=== PATIENT | female | born 1945 | race Caucasian/White ===

== ENCOUNTER 2024-02-16 14:48 | Inpatient (IN) ==
[2024-02-16] MEDS: Magnesium Sulfate 2 gm BAG 2 GM/50 ML BAG IVPB ONE (15:27)
[2024-02-16] MEDS: NS 0.9% 1000 ml BAG 1,000 ML IV ONE (15:28)
[2024-02-16] MEDS: Esmolol 10 MG/ML IVPREMIX 2,500 MG/250 ML BAG IV SCH (16:20)
[2024-02-17 06:34] LABS: ABS Eosinophils 0.3 10^3/uL (0.0-0.5); ABS Lymphocytes 0.7 10^3/uL (1.0-4.8); ABS Monocytes 0.5 10^3/uL (0.0-0.9); ABS Neutrophils 5.5 10^3/uL (1.5-7.6); Eosinophil % 4.2 %; Hematocrit 36.9 % (35-45); Hemoglobin 12.5 g/dL (11.5-14.3); Mean Corpuscular Hemoglobin 33.8 pg (27-33); Mean Corpuscular Hgb Conc 33.9 g/dL (31-36); Mean Corpuscular Volume 99.7 fL (80-97); Mean Platelet Volume 8.4 fL (7.5-11.2); Platelet Count 261 10^3/uL (150-450); Red Cell Distribution Width 14.1 % (12-17)
[2024-02-17 06:41] LABS: Creatinine, Serum 0.72 mg/dL (0.51-0.95); HDL Cholesterol 59.6 mg/dL; Potassium 4.2 mmol/L (3.5-5.0); eGFR CKD-EPI 84.5 (>60)
[2024-02-17 07:53] LABS: TSH Ultra Thyroid Stim Horm 1.24 mcIU/mL (0.34-5.60)
[2024-02-17 07:59] LABS: Ferritin 41.3 ng/mL (11-307)
[2024-02-17 08:02] LABS: Folate 15.07 ng/mL (5.90-24.80)
[2024-02-17] MEDS ORDERED: Influenza vaccine *QUAD* *2023-24* 0.5 ML SYRINGE IM ONE (09:00)
[2024-02-17] MEDS ORDERED: COVID VAC 23-24(12+)(Moderna) SYR 0.5 ML IM ONE (09:00)
[2024-02-17] MEDS ORDERED: Pneumococcal 20-Valent Conj 0.5 ML SYR Vaccine IM ONE (09:00)
[2024-02-17 09:23] LABS: Erythrocyte Sed Rate 14 mm/Hr (0-29)
[2024-02-17] MEDS: Cyanocobalamin INJ 1,000 MCG/ML VIAL 1 ML VIAL IM SCH (12:16)
[2024-02-17] MEDS: Furosemide 40 mg/4 ml IV VIAL IV ONE (12:17)
[2024-02-17] MEDS ORDERED: LORazepam 2 mg VIAL 1 ml IV PUSH SCH (14:00)
[2024-02-17] MEDS: Ferric Gluconate IV 125 MG in NS 0.9% 100 ml BAG 100 ML IVPB SCH (14:12)
[2024-02-17] MEDS: Thiamine 100 MG/ML 2 ml VIAL (200 mg) IM ONE (14:30)
[2024-02-17] MEDS: Nitroglycerin 0.1 mg/hr PATCH (2.5 mg) TRANSDERM SCH (14:36)
[2024-02-18] MEDS: Metoprolol Tartrate 5 mg VIAL 5 ml VIAL (1 mg/ml) IV PRN (01:55)
[2024-02-18] MEDS: Metoprolol Tartrate 5 mg VIAL 5 ml VIAL (1 mg/ml) IV ONE (03:06)
[2024-02-18] MEDS: Esmolol 10 MG/ML IVPREMIX 2,500 MG/250 ML BAG IV SCH (03:17)
[2024-02-18] MEDS: [UNRECOGNIZED DRUG - REMARK] PO SCH (03:25)
[2024-02-18 04:01] LABS: Hematocrit 40.3 % (35-45); Hemoglobin 14.1 g/dL (11.5-14.3); Mean Corpuscular Hemoglobin 34.4 pg (27-33); Mean Corpuscular Hgb Conc 34.9 g/dL (31-36); Mean Corpuscular Volume 98.4 fL (80-97); Mean Platelet Volume 8.2 fL (7.5-11.2); Platelet Count 320 10^3/uL (150-450); Red Blood Count 4.09 10^6/uL (3.63-4.92); Red Cell Distribution Width 14.1 % (12-17); White Blood Count 8.7 10^3/uL (3.8-11.8)
[2024-02-18 04:50] LABS: Calcium 8.9 mg/dL (8.6-10.3); Creatinine, Serum 0.85 mg/dL (0.51-0.95); Magnesium 1.9 mg/dL (1.9-2.7); Potassium 3.9 mmol/L (3.5-5.0); eGFR CKD-EPI 69.2 (>60)
[2024-02-18] MEDS: Lactated Ringers 1000 ml BAG 1,000 ML IV ONE (05:11)
[2024-02-18] MEDS: Norepinephrine 4 MG/250mL D5W 4,000 MCG/250 ML BAG IV SCH (05:18)
[2024-02-18] MEDS: Norepinephrine 4 MG/250mL D5W 4,000 MCG/250 ML BAG IV ONE (05:31)
[2024-02-18] MEDS: Digoxin IV 0.5 MG/2 ML AMP (0.25 MG/ML) IV SLOW PU ONE ×3 (06:04→16:58)
[2024-02-18] MEDS: Magnesium Sulfate 2 gm BAG 2 GM/50 ML BAG IVPB ONE (06:18)
[2024-02-18] MEDS ORDERED: Nitroglycerin 0.1 mg/hr PATCH (2.5 mg) TRANSDERM SCH (09:00)
[2024-02-18] MEDS ORDERED: COVID VAC 23-24(12+)(Moderna) SYR 0.5 ML IM ONE (09:00)
[2024-02-18] MEDS ORDERED: Pneumococcal 20-Valent Conj 0.5 ML SYR Vaccine IM ONE (09:00)
[2024-02-18] MEDS: Magnesium Sulfate IV 1GM/100ML 1 GM/100 ML BAG IV ONE (09:52)
[2024-02-18] MEDS ORDERED: Senna TAB 8.6 mg TAB PO PRN (19:36)
[2024-02-19 04:14] LABS: ABS Eosinophils 0.7 10^3/uL (0.0-0.5); ABS Lymphocytes 1.1 10^3/uL (1.0-4.8); ABS Monocytes 0.6 10^3/uL (0.0-0.9); ABS Neutrophils 4.4 10^3/uL (1.5-7.6); ABS Nucleated RBC 0.01 10^3/ul; Eosinophil % 9.9 %; Hemoglobin 12.7 g/dL (11.5-14.3); Lymphocyte % 15.8 %; Mean Corpuscular Hgb Conc 34.4 g/dL (31-36); Mean Corpuscular Volume 98.7 fL (80-97); Nucleated Red Blood Cells % 0.2 %/100WBC (0.0-0.8); Platelet Count 286 10^3/uL (150-450); Red Blood Count 3.75 10^6/uL (3.63-4.92); Red Cell Distribution Width 14.2 % (12-17); White Blood Count 6.8 10^3/uL (3.8-11.8)
[2024-02-19 04:54] LABS: Calcium 8.5 mg/dL (8.6-10.3); Creatinine, Serum 0.86 mg/dL (0.51-0.95); Magnesium 2.1 mg/dL (1.9-2.7); Potassium 4.1 mmol/L (3.5-5.0); eGFR CKD-EPI 68.3 (>60)
[2024-02-19] MEDS: Furosemide 20 mg/2 ml IV VIAL IV ONE (11:22)
[2024-02-20 03:48] LABS: Creatinine, Serum 0.89 mg/dL (0.51-0.95); Magnesium 1.9 mg/dL (1.9-2.7); Potassium 3.9 mmol/L (3.5-5.0); eGFR CKD-EPI 65.5 (>60)
[2024-02-20 04:02] LABS: ABS Eosinophils 0.6 10^3/uL (0.0-0.5); ABS Lymphocytes 1.2 10^3/uL (1.0-4.8); ABS Monocytes 0.6 10^3/uL (0.0-0.9); ABS Neutrophils 3.3 10^3/uL (1.5-7.6); ABS Nucleated RBC 0.02 10^3/ul; Eosinophil % 10.1 %; Hematocrit 35.4 % (35-45); Hemoglobin 12.2 g/dL (11.5-14.3); Lymphocyte % 20.7 %; Mean Corpuscular Hemoglobin 34.4 pg (27-33); Mean Corpuscular Hgb Conc 34.6 g/dL (31-36); Mean Corpuscular Volume 99.3 fL (80-97); Nucleated Red Blood Cells % 0.3 %/100WBC (0.0-0.8); Platelet Count 274 10^3/uL (150-450); Red Blood Count 3.56 10^6/uL (3.63-4.92); Red Cell Distribution Width 13.9 % (12-17); White Blood Count 5.7 10^3/uL (3.8-11.8)
[2024-02-20] MEDS: Senna TAB 8.6 mg TAB PO SCH (08:13)
[2024-02-21 04:55] LABS: ABS Eosinophils 0.5 10^3/uL (0.0-0.5); ABS Lymphocytes 1.1 10^3/uL (1.0-4.8); ABS Monocytes 0.7 10^3/uL (0.0-0.9); ABS Neutrophils 4.8 10^3/uL (1.5-7.6); ABS Nucleated RBC 0.01 10^3/ul; Eosinophil % 7.2 %; Hematocrit 36.5 % (35-45); Hemoglobin 12.6 g/dL (11.5-14.3); Lymphocyte % 15.3 %; Mean Corpuscular Hgb Conc 34.5 g/dL (31-36); Mean Corpuscular Volume 98.7 fL (80-97); Mean Platelet Volume 7.5 fL (7.5-11.2); Nucleated Red Blood Cells % 0.2 %/100WBC (0.0-0.8); Platelet Count 303 10^3/uL (150-450); Red Cell Distribution Width 13.9 % (12-17); White Blood Count 7.1 10^3/uL (3.8-11.8)
[2024-02-21 05:51] LABS: Calcium 9.2 mg/dL (8.6-10.3); Creatinine, Serum 0.84 mg/dL (0.51-0.95); Magnesium 1.8 mg/dL (1.9-2.7); eGFR CKD-EPI 70.2 (>60)
[2024-02-21] MEDS ORDERED: Regadenoson 0.4 MG/5 ML SYRINGE ONE (07:52)
[2024-02-21] MEDS: Venlafaxine 25 mg TAB (NF) PO SCH (10:28)
[2024-02-21] MEDS: Magnesium Sulfate 2 gm BAG 2 GM/50 ML BAG IVPB ONE (12:01)
[2024-02-21] MEDS: Furosemide 20 mg/2 ml IV VIAL IV SLOW PU ONE (16:33)
[2024-02-22 07:04] LABS: Calcium 9.5 mg/dL (8.6-10.3); Creatinine, Serum 0.82 mg/dL (0.51-0.95); Magnesium 1.9 mg/dL (1.9-2.7); eGFR CKD-EPI 72.3 (>60)
[2024-02-23 06:42] LABS: ABS Basophils 0.1 10^3/uL (0.0-0.1); ABS Eosinophils 0.1 10^3/uL (0.0-0.5); ABS Lymphocytes 1.2 10^3/uL (1.0-4.8); ABS Neutrophils 6.6 10^3/uL (1.5-7.6); ABS Nucleated RBC 0.01 10^3/ul; Eosinophil % 1.1 %; Hemoglobin 14.6 g/dL (11.5-14.3); Lymphocyte % 13.1 %; Mean Corpuscular Hemoglobin 34.4 pg (27-33); Mean Corpuscular Hgb Conc 34.7 g/dL (31-36); Mean Corpuscular Volume 98.9 fL (80-97); Mean Platelet Volume 7.9 fL (7.5-11.2); Nucleated Red Blood Cells % 0.1 %/100WBC (0.0-0.8); Platelet Count 294 10^3/uL (150-450); Red Blood Count 4.24 10^6/uL (3.63-4.92); Red Cell Distribution Width 14.3 % (12-17)
[2024-02-23 07:03] LABS: Calcium 9.2 mg/dL (8.6-10.3); Creatinine, Serum 0.78 mg/dL (0.51-0.95); Potassium 4.1 mmol/L (3.5-5.0); eGFR CKD-EPI 76.7 (>60)
[2024-02-23] MEDS: NS 0.9% 500 ml BAG 500 ML IV ONE (11:25)
[2024-02-23] MEDS: Metoprolol Tartrate 5 mg VIAL 5 ml VIAL (1 mg/ml) ONE (11:28)
[2024-02-23] MEDS: Digoxin IV 0.5 MG/2 ML AMP (0.25 MG/ML) IV SLOW PU ONE ×2 (11:55→12:32)
[2024-02-23] MEDS: Metoprolol Tartrate 5 mg VIAL 5 ml VIAL (1 mg/ml) IV ONE (12:19)
[2024-02-23] MEDS ORDERED: Ondansetron 4 mg VIAL 2 MG/ML 2 ml VIAL IV PRN (20:59)
[2024-02-23] MEDS: Ondansetron 4 mg VIAL 2 MG/ML 2 ml VIAL IV ONE (21:12)
[2024-02-24 07:00] LABS: ABS Eosinophils 0.1 10^3/uL (0.0-0.5); ABS Lymphocytes 1.1 10^3/uL (1.0-4.8); ABS Monocytes 1.4 10^3/uL (0.0-0.9); ABS Neutrophils 8.3 10^3/uL (1.5-7.6); Eosinophil % 0.8 %; Hematocrit 41.6 % (35-45); Hemoglobin 14.4 g/dL (11.5-14.3); Lymphocyte % 9.7 %; Mean Corpuscular Hemoglobin 34.2 pg (27-33); Mean Corpuscular Hgb Conc 34.5 g/dL (31-36); Mean Corpuscular Volume 99.1 fL (80-97); Mean Platelet Volume 7.7 fL (7.5-11.2); Platelet Count 328 10^3/uL (150-450); Red Cell Distribution Width 14.4 % (12-17); White Blood Count 10.8 10^3/uL (3.8-11.8)
[2024-02-24 07:20] LABS: Calcium 9.2 mg/dL (8.6-10.3); Creatinine, Serum 1.08 mg/dL (0.51-0.95); Magnesium 2.3 mg/dL (1.9-2.7); Potassium 4.6 mmol/L (3.5-5.0); eGFR CKD-EPI 51.9 (>60)
[2024-02-25 07:31] LABS: Calcium 9.4 mg/dL (8.6-10.3); Creatinine, Serum 0.85 mg/dL (0.51-0.95); Magnesium 2.1 mg/dL (1.9-2.7); Potassium 4.7 mmol/L (3.5-5.0); eGFR CKD-EPI 69.2 (>60)
[2024-02-28 09:49] VITALS: BP 122/64
[2024-02-28 10:33] LABS: Rapid COVID-19 Molecular Undetected (Undetected)
== END 2024-02-28 13:30 | disposition swing bed (61) | DRG 308 ==
LOC: ED 14:48 → SUATTDRO 16:26 → EDHOLD 16:26 → ICU 19:55 → MEDTELE 02-17 16:48 → ICU 02-18 03:03 → MEDTELE 02-21 06:20
PROVIDERS: ADMIT Surgery Surgical Critical Care; ATTEND Internal Medicine

== ENCOUNTER 2024-03-03 13:23 | Inpatient (IN) ==
[2024-03-03 16:39] LABS: ABS Basophils 0.1 10^3/uL (0.0-0.1); ABS Eosinophils 0.2 10^3/uL (0.0-0.5); ABS Lymphocytes 1.2 10^3/uL (1.0-4.8); ABS Monocytes 0.7 10^3/uL (0.0-0.9); ABS Neutrophils 4.6 10^3/uL (1.5-7.6); ABS Nucleated RBC 0.01 10^3/ul; Eosinophil % 3.4 %; Hematocrit 49.5 % (35-45); Lymphocyte % 18.1 %; Mean Corpuscular Hemoglobin 33.6 pg (27-33); Mean Corpuscular Hgb Conc 34.3 g/dL (31-36); Mean Platelet Volume 8.5 fL (7.5-11.2); Nucleated Red Blood Cells % 0.1 %/100WBC (0.0-0.8); Platelet Count 395 10^3/uL (150-450); Red Blood Count 5.05 10^6/uL (3.63-4.92); Red Cell Distribution Width 13.5 % (12-17); White Blood Count 6.9 10^3/uL (3.8-11.8)
[2024-03-03 17:09] LABS: Albumin 4.3 g/dL (3.2-5.2); Albumin/Globulin Ratio 1.6 (1-3); Calcium 10.1 mg/dL (8.6-10.3); Creatinine, Serum 0.96 mg/dL (0.51-0.95); Globulin 2.7 g/dL (2-4); Magnesium 2.2 mg/dL (1.9-2.7); Potassium 4.7 mmol/L (3.5-5.0); Total Bilirubin 0.4 mg/dL (0.2-1.0); eGFR CKD-EPI 59.8 (>60)
[2024-03-03] MEDS: Cyanocobalamin INJ 1,000 MCG/ML VIAL 1 ML VIAL IM SCH (17:33)
[2024-03-04 06:27] LABS: Hematocrit 44.2 % (35-45); Hemoglobin 15.2 g/dL (11.5-14.3); Mean Corpuscular Hemoglobin 33.4 pg (27-33); Mean Corpuscular Hgb Conc 34.4 g/dL (31-36); Mean Corpuscular Volume 97.3 fL (80-97); Mean Platelet Volume 8.5 fL (7.5-11.2); Platelet Count 355 10^3/uL (150-450); Red Blood Count 4.55 10^6/uL (3.63-4.92); Red Cell Distribution Width 13.6 % (12-17); White Blood Count 6.2 10^3/uL (3.8-11.8)
[2024-03-04 06:43] LABS: Calcium 9.4 mg/dL (8.6-10.3); Creatinine, Serum 1.05 mg/dL (0.51-0.95); Potassium 5.1 mmol/L (3.5-5.0); eGFR CKD-EPI 53.7 (>60)
[2024-03-04] MEDS: CMCS:Venlafaxine 25 mg TAB (NF) PO SCH (09:02)
[2024-03-04] MEDS: Senna TAB 8.6 mg TAB PO SCH (09:03)
[2024-03-05 06:26] LABS: Calcium 9.3 mg/dL (8.6-10.3); Creatinine, Serum 1.1 mg/dL (0.51-0.95); Magnesium 2.2 mg/dL (1.9-2.7); Potassium 4.7 mmol/L (3.5-5.0); eGFR CKD-EPI 50.8 (>60)
[2024-03-06 05:26] LABS: Hematocrit 42.8 % (35-45); Hemoglobin 14.6 g/dL (11.5-14.3); Mean Corpuscular Hemoglobin 33.6 pg (27-33); Mean Corpuscular Hgb Conc 34.1 g/dL (31-36); Mean Corpuscular Volume 98.6 fL (80-97); Mean Platelet Volume 8.6 fL (7.5-11.2); Platelet Count 341 10^3/uL (150-450); Red Blood Count 4.34 10^6/uL (3.63-4.92); Red Cell Distribution Width 13.9 % (12-17); White Blood Count 7.2 10^3/uL (3.8-11.8)
[2024-03-06 05:46] LABS: Calcium 9.4 mg/dL (8.6-10.3); Creatinine, Serum 1.11 mg/dL (0.51-0.95); Magnesium 2.2 mg/dL (1.9-2.7); Potassium 4.9 mmol/L (3.5-5.0); eGFR CKD-EPI 50.2 (>60)
[2024-03-06 08:55] VITALS: BP 109/67
== END 2024-03-06 14:15 | disposition home or self-care (01) | DRG 309 ==
LOC: MEDTELE 13:42 → SUATTDRO 14:47
PROVIDERS: ADMIT Internal Medicine; ATTEND Internal Medicine